=== PATIENT | male | born 1950 | race Caucasian/White ===

== ENCOUNTER 2016-08-13 13:08 | Observation (INO) ==
--- NOTE | 2016-08-13 13:23 | Emergency Department Note ---
Disposition Clinical Impression: Hyperkalemia, CKD (chronic kidney disease) stage 3, GFR 30-59 ml/min Diabetes mellitus Qualifiers: Diabetes mellitus type: type 2 Diabetes mellitus complication status: without complication Disposition: Admitted As Inpatient Referrals: NO,PCP [Primary Care Provider] - Time of Disposition: 15:00 (admit ) Nausea/Vomiting/Diarrhea HPI - General Chief complaint: ED Nausea/Vomiting/Diarrhea Stated complaint: N/V Source: patient, EMS Mode of arrival: EMS Limitations: no limitations Nursing Notes Reviewed: Yes Vital Signs Reviewed: Yes - History of Present Illness HPI Narrative: He presents via EMS complaining of nausea and vomiting. States started late last night. He reports 3-4 episodes of mostly dry heaves. He has had one episode of loose stools. He denies any abdominal pain. Has a history of frequent chest pain but denies any chest pain now. No fever or chills. States he had some nausea and vomiting a week ago that he thinks is due to something he ate. He was given Zofran by EMS and states this has made him feel better. He states he is in hospice care for a heart condition that he states is some type of blockage they cannot fix. No cardiac history recorded in his records here but he does have a history of COPD, diabetes and GERD as well as hypertension. He denies any GI history such as diverticulitis, colitis or hepatitis. He states he is on an antibiotic that he thinks may be for UTI but he does not recall the name and denies any current urinary symptoms.. States this was prescribed by hospice. Has a chronic smoker's cough but denies any other URI symptoms. No other complaints at this time. Glucose by EMS is 343. - Related Data Home Medications Medication Instructions Recorded Confirmed Albuterol Sulfate [Ventolin Hfa] 18 gm IH Q6HR PRN 02/16/16 03/14/16 Atorvastatin [Lipitor] 40 mg PO HS 02/16/16 03/14/16 Carvedilol [Coreg] 6.25 mg PO BID 02/16/16 03/14/16 Citalopram Hydrobromide 40 mg PO DAILY 02/16/16 03/14/16 [Citalopram HBr] Famotidine [Heartburn Prevention] 20 mg PO BID 02/16/16 03/14/16 Insulin LISPRO [HumaLOG] 7 units SQ TIDWM PRN 10/03/16 10/30/16 Isosorbide MONOnitrate (24 HR) 60 mg PO DAILY 02/16/16 03/14/16 [Imdur] Losartan Potassium [Cozaar] 50 mg PO DAILY 02/16/16 03/14/16 Ranolazine [Ranexa] 1,000 mg PO BID 02/16/16 03/14/16 Sitagliptin Phosphate [Januvia] 50 mg PO DAILY 02/16/16 03/14/16 Tamsulosin HCl [Flomax] 0.4 mg PO DAILY 02/16/16 03/14/16 Docusate [Colace] 100 mg PO BID 03/14/16 03/14/16 Mirtazapine [Remeron] 15 mg PO HS 03/14/16 03/14/16 Oxycodone HCl/Acetaminophen 1 tab PO Q6H PRN 03/14/16 03/14/16 [Percocet 7.5-325 mg Tablet] Previous Rx's Medication Instructions Recorded Ascorbic Acid [Vitamin C] 250 mg PO DAILY #30 tablet 03/17/16 Ferrous Sulfate 325 mg PO BIDWM #60 tablet 03/17/16 Folic Acid 1 mg PO DAILY #30 tablet 03/17/16 Gabapentin [Neurontin] 300 mg PO TID #90 capsule 03/17/16 Allergies Allergy/AdvReac Type Severity Reaction Status Date / Time latex Allergy Rash Verified 03/14/16 12:36 lisinopril Allergy Hives Verified 03/14/16 12:36 metformin [From Glucophage] Allergy Rash Verified 03/14/16 12:36 Sulfa (Sulfonamide Allergy Hives Verified 03/14/16 12:36 Antibiotics) Constitutional: Denies: fever, chills, weakness, weight change Eyes: Denies: eye pain, eye discharge, vision change ENT ED: Denies: ear pain, throat pain, dental pain, hearing loss, epistaxis, congestion, dysphagia Cardiovascular: Denies: chest pain, palpitations, dyspnea on exertion, edema, syncope Respiratory: Reports: cough Gastrointestinal: Reports: nausea, vomiting, diarrhea. Denies: abdominal pain, constipation, hematemesis, melena, hematochezia Genitourinary: Denies: urgency, dysuria, frequency, hematuria Musculoskeletal: Denies: back pain, neck pain, arthralgia, myalgia Integumentary: Denies: rash, abrasion, lesions Neurological: Denies: headache, weakness, numbness, paresthesias, confusion, abnormal gait, vertigo Psychiatric: Denies: anxiety, depression, suicidal thoughts, homicidal thoughts , auditory hallucinations, visual hallucinations Endocrine: Denies: fatigue Hematological/Lymphatic: Denies: easy bleeding, easy bruising Allergic/Immunologic: Denies: facial swelling, urticaria Past Medical History - Past Medical History Medical history: Reports: COPD, diabetes, GERD, hypertension, other Surgical history: Reports: other Psychiatric history: Reports: no psych history - Social History Smoking Status: Current every day smoker Smokeless Tobacco Status: No Alcohol use: Reports: none Drug use: Reports: none Physical Exam - General Limitations: no limitations General appearance: alert, in no apparent distress - Head Head exam: atraumatic, normocephalic, normal inspection - Eye Eye exam: Present: normal appearance, PERRL, EOMI - ENT ENT exam: normal exam, normal oropharynx, mucous membranes moist - Neck Neck exam: Present: normal inspection, full ROM, trachea midline - Chest Chest inspection: Present: normal inspection, symmetric chest wall rise - Respiratory Respiratory exam: Present: normal lung sounds bilaterally - Cardiovascular Cardiovascular exam: Present: regular rate, normal rhythm, normal heart sounds - Abdominal Exam Abdominal exam: Present: soft, Non-Tender, normal bowel sounds. Absent: tenderness, distention, guarding, rebound, rigidity - Extremities Exam Extremities exam: Present: normal inspection, full ROM. Absent: tenderness, pedal edema - Back Exam Back exam: Present: normal inspection, full ROM. Absent: tenderness, CVA tenderness (R), CVA tenderness (L) - Neurological Exam Neurological exam: Present: alert, oriented X3 - Psychiatric Psychiatric exam: Present: normal affect, normal mood - Skin Skin exam: Present: warm, dry, intact, normal color Course Course Narrative: Radha presents to the ED with nausea, vomiting and one episode of loose stools. No other systemic symptoms, cardiac or respiratory symptoms. It is unclear why he is currently on antibiotic. Will check with his pharmacy to find out the name. He is hyperglycemic at this time and will be given some fluids. Will check routine labs for any other GI condition or diabetic complication. Current symptoms may be due to a viral gastroenteritis and/or antibiotic side effect. - Reevaluation(s) Reevaluation #1: Labs show no leukocytosis or elevated LFTs. No additional laboratory findings to indicate DKA. He is hyperkalemic however at .4 with no hemolysis in sampling. There were no peaked T waves on 12-lead. Will treat for hyperkalemia and continue IV fluids. Urinalysis shows hematuria but no evidence of UTI. Time: 14:52 Reevaluation #2: Discussed with patient need for overnight admission for continued monitoring and potential additional treatment of his hyperkalemia. Patient is agreeable. I spoke to the hospitalist front man, Dr. Lowery, who has accepted the patient. Clarified with the patient that although he does state he is under hospice care he is a full code. Will continue IV fluids. Patient currently has no complaints. Vital Signs Temperature 98 F 08/13/16 13:10 Pulse Rate 74 08/13/16 13:10 Respiratory Rate 18 08/13/16 13:10 Blood Pressure 186/101 08/13/16 13:10 O2 Sat by Pulse Oximetry 95 08/13/16 13:10 Temperature 98 F 08/13/16 13:10 Pulse Rate 73 08/13/16 15:52 Respiratory Rate 16 08/13/16 15:52 Blood Pressure 157/81 08/13/16 15:52 O2 Sat by Pulse Oximetry 97 08/13/16 15:52 Oxygen Delivery Oxygen Delivery Room Air Nausea/Vomiting/Diarrhea - Differential Diagnosis Likely: gastroenteritis, clostridium difficile infection, drug-induced nausea and vomitting, dehydration. Unlikely: surgical process, bowel obstruction, ischemic bowel - Medical Records Medical records reviewed: Yes I reviewed the patient's medical records. - Lab Data Lab results reviewed: Yes I reviewed the patient's lab results. Result diagrams: 08/13/16 14:05 08/13/16 14:05 Lab Results 08/13/16 08/13/16 08/13/16 Range/Units 14:05 14:05 14:05 WBC 7.7 (4.3-11.1) K/mcL RBC 3.53 L (4.19-5.50) M/mcL Hgb 10.6 L (12.9-16.9) g/dL Hct 31.2 L (37.5-50.1) % MCV 88.4 (83.0-100.0) fL MCH 30.0 (28.0-33.3) pg MCHC 34.0 (31.6-35.5) g/dL RDW 12.6 (11.5-14.5) % Plt Count 194 (140-400) K/mcL MPV 10.1 (9.4-12.4) fL Immature Gran % 0.8 (0-4) % Seg Neutrophils % 80.2 % Lymphocytes % 11.2 % Monocytes % 5.7 % Eosinophils % 1.7 % Basophils % 0.4 % Neutrophils # 6.2 (1.6-8.9) K/mcL Lymphocytes # 0.9 (0.6-4.6) K/mcL Monocytes # 0.4 (0.0-1.3) K/mcL Eosinophils # 0.1 (0.0-0.6) K/mcL Basophils # 0.0 (0.0-0.2) K/mcL VBG pH (7.32-7.42) pH Units VBG pCO2 (41-51) mmHg VBG pO2 (25-40) mmHg VBG HCO3 (21-27) mEq/L Sodium 137 (136-145) mEq/L Potassium 5.4 H (3.5-4.5) mEq/L Chloride 104 (98-109) mEq/L Carbon Dioxide 27 (19-29) mEq/L BUN 30 H (8-26) mg/dL Creatinine 1.88 H (0.72-1.25) mg/dL Est GFR ( Amer) 44 L (> 60) Est GFR (Non-Af Amer) 36 L (> 60) BUN/Creatinine Ratio 16 (6-26) Glucose 348 H (70-99) mg/dL Calculated Osmolality 304 H (280-300) Calcium 9.2 (8.6-10.8) mg/dL Total Bilirubin 0.5 (0.2-1.2) mg/dL AST 12 (5-34) Units/L ALT 10 (0-55) Units/L Alkaline Phosphatase 111 (38-126) Units/L Troponin I (0-0.03) ng/mL Serum Total Protein 5.7 L (6.0-8.3) g/dL Albumin 3.1 L (3.5-5.0) g/dL Globulin 2.6 (2.4-3.5) g/dL Albumin/Globulin Ratio 1.2 (1.1-2.2) Lipase 22 (8-78) Units/L Beta-Hydroxybutyric Acd 0.26 (0.02-0.27) mmol/L Urine Color (Yellow) Urine Clarity (Clear) Urine pH (5.0-8.0) pH Units Ur Specific [place] (1.010-1.025) Urine Protein (Neg-Trace) mg/dL Urine Glucose (UA) (Normal) mg/dL Urine Ketones (Negative) mg/dL Urine Blood (Negative) Urine Nitrite (Negative) Urine Bilirubin (Negative) Urine Urobilinogen (Normal) mg/dL Ur Leukocyte Esterase (Negative) Urine Microscopic RBC (0-3) per hpf Urine Microscopic WBC Ur Squamous Epith Cells (None-Few) per lpf Ur Culture Indicated? (NO) 08/13/16 08/13/16 08/13/16 Range/Units 14:05 14:05 14:07 WBC (4.3-11.1) K/mcL RBC (4.19-5.50) M/mcL Hgb (12.9-16.9) g/dL Hct (37.5-50.1) % MCV (83.0-100.0) fL MCH (28.0-33.3) pg MCHC (31.6-35.5) g/dL RDW (11.5-14.5) % Plt Count (140-400) K/mcL MPV (9.4-12.4) fL Immature Gran % (0-4) % Seg Neutrophils % % Lymphocytes % % Monocytes % % Eosinophils % % Basophils % % Neutrophils # (1.6-8.9) K/mcL Lymphocytes # (0.6-4.6) K/mcL Monocytes # (0.0-1.3) K/mcL Eosinophils # (0.0-0.6) K/mcL Basophils # (0.0-0.2) K/mcL VBG pH 7.40 (7.32-7.42) pH Units VBG pCO2 43.6 (41-51) mmHg VBG pO2 25.8 (25-40) mmHg VBG HCO3 27.2 H (21-27) mEq/L Sodium (136-145) mEq/L Potassium (3.5-4.5) mEq/L Chloride (98-109) mEq/L Carbon Dioxide (19-29) mEq/L BUN (8-26) mg/dL Creatinine (0.72-1.25) mg/dL Est GFR ( Amer) (> 60) Est GFR (Non-Af Amer) (> 60) BUN/Creatinine Ratio (6-26) Glucose (70-99) mg/dL Calculated Osmolality (280-300) Calcium (8.6-10.8) mg/dL Total Bilirubin (0.2-1.2) mg/dL AST (5-34) Units/L ALT (0-55) Units/L Alkaline Phosphatase (38-126) Units/L Troponin I 0.01 (0-0.03) ng/mL Serum Total Protein (6.0-8.3) g/dL Albumin (3.5-5.0) g/dL Globulin (2.4-3.5) g/dL Albumin/Globulin Ratio (1.1-2.2) Lipase (8-78) Units/L Beta-Hydroxybutyric Acd (0.02-0.27) mmol/L Urine Color Yellow (Yellow) Urine Clarity Clear (Clear) Urine pH 7.0 (5.0-8.0) pH Units Ur Specific [place] 1.025 (1.010-1.025) Urine Protein >=300 H (Neg-Trace) mg/dL Urine Glucose (UA) >=1000 H (Normal) mg/dL Urine Ketones Negative (Negative) mg/dL Urine Blood Moderate H (Negative) Urine Nitrite Negative (Negative) Urine Bilirubin Negative (Negative) Urine Urobilinogen Normal (Normal) mg/dL Ur Leukocyte Esterase Negative (Negative) Urine Microscopic RBC 30-50 H (0-3) per hpf Urine Microscopic WBC Test Not Performed Ur Squamous Epith Cells Few (None-Few) per lpf Ur Culture Indicated? NO (NO) - EKG Data EKG attestation: Yes I reviewed and interpreted this EKG. EKG results narrative: Supraventricular rhythm at 76 bpm with no clear T waves but significant baseline artifact Rate: normal [place]/QRS: left axis deviation
[2016-08-13] MEDS ORDERED: 0.9 % Sodium Chloride 500 ML IVC ONE (13:36)
[2016-08-13 14:17] LABS: Bilirubin,Urine Negative (Negative); Blood,Urine Moderate (Negative); Clarity,Urine Clear (Clear); Color,Urine Yellow (Yellow); Glucose,Urine (UA) >=1000 mg/dL (Normal); Ketones,Urine Negative (Negative); Leukocyte Esterase,Urine Negative (Negative); Nitrite,Urine Negative (Negative); Protein,Urine >=300 mg/dL (Neg-Trace); Specific Gravity,Urine 1.025 (1.010-1.025); Urobilinogen,Urine Normal (Normal)
[2016-08-13 14:27] LABS: VBG HCO3 27.2 mEq/L (21-27); VBG PCO2 43.6 mmHg (41-51); VBG PH 7.4 pH Units (7.32-7.42); VBG PO2 25.8 mmHg (25-40)
[2016-08-13 14:28] LABS: Albumin 3.1 g/dL (3.5-5.0); Albumin/Globulin Ratio 1.2 (1.1-2.2); Bilirubin,Total 0.5 mg/dL (0.2-1.2); Calcium 9.2 mg/dL (8.6-10.8); Globulin 2.6 g/dL (2.4-3.5); Potassium 5.4 mEq/L (3.5-4.5); Total Protein 5.7 g/dL (6.0-8.3)
[2016-08-13 14:31] LABS: Basophils % 0.4 %; Eosinophils # 0.1 K/mcL (0.0-0.6); Eosinophils % 1.7 %; Hematocrit 31.2 % (37.5-50.1); Hemoglobin 10.6 g/dL (12.9-16.9); Immature Granulocytes % 0.8 % (0-4); Lymphocytes # 0.9 K/mcL (0.6-4.6); Lymphocytes % 11.2 %; Mean Corpuscular Volume 88.4 fL (83.0-100.0); Mean Platelet Volume 10.1 fL (9.4-12.4); Monocytes # 0.4 K/mcL (0.0-1.3); Monocytes % 5.7 %; Neutrophils # 6.2 K/mcL (1.6-8.9); Platelet Count 194 K/mcL (140-400); Red Blood Count 3.53 M/mcL (4.19-5.50); Red Cell Distribution Width 12.6 % (11.5-14.5); Segmented Neutrophils % 80.2 %
[2016-08-13 14:39] LABS: RBC,Urine 30-50 per hpf (0-3); Squamous Epithelial Cell,Urine Few per lpf (None-Few)
[2016-08-13] MEDS ORDERED: Insulin Human Regular 10 UNIT in 0.9 % Sodium Chloride 10 ML IV ONE (14:51)
[2016-08-13] MEDS ORDERED: Calcium Gluconate 1,000 MG/10 ML VIAL IV ONE (14:51)
[2016-08-13] MEDS ORDERED: Naloxone 0.4 MG/ML INJ IVP PRN ×2 (16:13→17:35)
[2016-08-13] MEDS ORDERED: Ondansetron ODT 4 MG TAB.RAPDIS SL PRN ×2 (17:01→17:35)
--- NOTE | 2016-08-13 17:04 | Internal Med History&Physical ---
Date of Encounter: 08/13/16 Time of Encounter: 17:00 Assessment and Plan (1) CKD (chronic kidney disease) stage 3, GFR 30-59 ml/min Current visit: Yes Status: Chronic He should have has chronic kidney disease due to his long-term diabetes (2) Diabetes mellitus Current visit: Yes Status: Chronic Long-term diabetic care. Qualifiers: Diabetes mellitus type: type 2 Diabetes mellitus complication status: with kidney complications Diabetes mellitus terminal gauger insulin use: with group home use Chronic kidney disease stage: stage 3 (moderate) Qualified Code(s): E11.22 - Type 2 diabetes mellitus with diabetic chronic kidney disease; N18.3 - Chronic kidney disease, stage 3 (moderate); Z79.4 - residential (current) use of insulin (3) Hyperkalemia Current visit: No Status: Acute Hyperkalemia is unusual with nausea and vomiting. This could be gastroparesis but will follow everything in general and observe the patient (4) Nausea with vomiting, unspecified Current visit: Yes Status: Acute No nausea and vomiting at this moment. The Zofran seems to help Qualifiers: Vomiting type: unspecified Vomiting Intractability: non-intractable Qualified Code(s): R11.2 - Nausea with vomiting, unspecified (5) Nausea vomiting and diarrhea Current visit: Yes Status: Acute As above no nausea and vomiting at this time he had one episode of loose stools earlier. Internal Medicine - H&P: HPI Chief complaint: Patient presented presented to the emergency room nausea and vomiting. He Admitted From: Emergency Dept Plans for Post Hospital Care: Home History of present illness: Mr. Rogel is a 66 year old male It was noted that he had 5.4 potassium so this was treated emergency room doctor preferred to have in observation overnight. Past Med Surg Social Fam HX - Past Medical History Medical history: COPD, coronary artery disease, diabetes, GERD, hypertension, other Psychiatric history: no psych history - Past Surgical History Surgical History: other - Social History Smoking Status: Current every day smoker Smokeless Tobacco Status: No Alcohol use: none Drug use: none Internal Medicine - H&P: Meds Albuterol Sulfate [Ventolin Hfa] 18 gm IH Q6HR PRN 02/16/16 [History] Atorvastatin [Lipitor] 40 mg PO HS 02/16/16 [History] Carvedilol [Coreg] 6.25 mg PO BID 02/16/16 [History] Citalopram Hydrobromide [Citalopram HBr] 40 mg PO DAILY 02/16/16 [History] Famotidine [Heartburn Prevention] 20 mg PO BID 02/16/16 [History] Insulin LISPRO [HumaLOG] 7 units SQ TIDWM PRN 02/16/16 [History] Isosorbide MONOnitrate (24 HR) [Imdur] 60 mg PO DAILY 02/16/16 [History] Losartan Potassium [Cozaar] 50 mg PO DAILY 02/16/16 [History] Ranolazine [Ranexa] 1,000 mg PO BID 02/16/16 [History] Sitagliptin Phosphate [Januvia] 50 mg PO DAILY 02/16/16 [History] Tamsulosin HCl [Flomax] 0.4 mg PO DAILY 02/16/16 [History] Docusate [Colace] 100 mg PO BID 03/14/16 [History] Oxycodone HCl/Acetaminophen [Percocet 7.5-325 mg Tablet] 1 tab PO Q6H PRN [History] Ascorbic Acid [Vitamin C] 250 mg PO DAILY #30 tablet 03/17/16 [Rx] Ferrous Sulfate 325 mg PO BIDWM #60 tablet 03/17/16 [Rx] Folic Acid 1 mg PO DAILY #30 tablet 03/17/16 [Rx] Gabapentin [Neurontin] 300 mg PO TID #90 capsule 03/17/16 [Rx] Bisacodyl [Dulcolax] 10 mg RC DAILY PRN 08/13/16 [History] Omeprazole [PriLOSEC] 20 mg PO DAILY 08/13/16 [History] Allergies latex Allergy (Verified 03/14/16 12:36) Rash lisinopril Allergy (Verified 03/14/16 12:36) Hives metformin [From Glucophage] Allergy (Verified 03/14/16 12:36) Rash Sulfa (Sulfonamide Antibiotics) Allergy (Verified 03/14/16 12:36) Hives All Systems PM: A 10-system review of systems was performed and is negative for pertinent findings except as documented above in the HPI. - Constitutional Vitals: Temp Pulse Resp BP Pulse Ox 98 F 73 16 157/81 97 08/13/16 13:10 08/13/16 15:52 08/13/16 15:52 08/13/16 15:52 08/13/16 15:52 - Head Head exam: Present: atraumatic, normal inspection, normocephalic - Neck Neck exam general surgery: Present: supple, trachea midline. Absent: lymphadenopathy - Respiratory Respiratory exam: Present: CTAB. Absent: accessory muscle use, rales, rhonchi, wheezes - Cardiovascular Cardiovascular exam: Present: RRR, +S1, +S2. Absent: diastolic murmur, gallop, rubs, systolic murmur - GI/Abdominal GI/Abdominal exam: Present: normal bowel sounds, soft, no peritoneal signs. Absent: distended, tenderness Internal Med - H&P Results - Labs CBC & Chem 7: 08/13/16 14:05 08/13/16 14:05 Labs: There are obvious chronic changes. Patient has some chronic renal failure due to his long-term diabetes etc. And the potassium was elevated 5.4 - VTE Reasons for not Prescribing Prophylaxis: Treatment not Indicated - Low risk for VTE
[2016-08-13] MEDS ORDERED: *HR* OxyCODONE/APAP 7.5/325 TABLET PO PRN (17:35)
[2016-08-13] MEDS ORDERED: D5% in Water 1,000 ML IVC PRN (18:10)
[2016-08-13] MEDS ORDERED: Dextrose Gel 15 GM PO PRN ×2 (18:10)
[2016-08-13] MEDS ORDERED: *HR* Dextrose 50 % in Water (Syg) 50 ML SYRINGE IVP PRN (18:10)
[2016-08-13] MEDS: Insulin LISPRO 300 UNITS/3 ML VIAL SQ SCH (18:36)
[2016-08-13] MEDS ORDERED: 0.9 % Sodium Chloride 1,000 ML ONE (20:01)
[2016-08-13] MEDS: Ranolazine 500 MG TAB.ER.12H PO SCH (20:24)
[2016-08-13] MEDS: Gabapentin 100 MG CAPSULE PO SCH (20:25)
[2016-08-13] MEDS: Famotidine 20 MG TABLET PO SCH (20:26)
[2016-08-13] MEDS ORDERED: Mirtazapine 15 MG TABLET PO SCH (21:00)
[2016-08-14 05:40] LABS: Calcium 8.6 mg/dL (8.6-10.8); Potassium 4.4 mEq/L (3.5-4.5)
[2016-08-14] MEDS ORDERED: Isosorbide MONOnitrate (24 HR) 60 MG TAB.ER.24H PO SCH (09:00)
[2016-08-14] MEDS ORDERED: Folic Acid 1 MG TABLET PO SCH (09:00)
[2016-08-14] MEDS ORDERED: *HR* SitaGLIPtin 25 MG TABLET PO SCH (09:00)
[2016-08-14] MEDS ORDERED: Ascorbic Acid 500 MG TABLET PO SCH (09:00)
[2016-08-14] MEDS: Famotidine 20 MG TABLET PO SCH (09:25)
[2016-08-14] MEDS: Ranolazine 500 MG TAB.ER.12H PO SCH (09:25)
[2016-08-14] MEDS: Gabapentin 100 MG CAPSULE PO SCH (09:26)
[2016-08-14] MEDS: Insulin LISPRO 300 UNITS/3 ML VIAL SQ SCH ×2 (09:27→12:49)
--- NOTE | 2016-08-14 12:33 | Discharge Summary ---
Date of Encounter: 08/14/16 Time of Encounter: 12:00 - Discharge Diagnosis (1) CKD (chronic kidney disease) stage 3, GFR 30-59 ml/min Priority: Secondary Status: Chronic Comments: This could contribute to his hyperkalemia but otherwise no acute change (2) Diabetes mellitus Priority: Secondary Status: Chronic Comments: And this probably the cause of his chronic kidney disease Qualifiers: Diabetes mellitus type: type 2 Diabetes mellitus complication status: with kidney complications Diabetes mellitus assisted insulin use: with superintendent terminal use Chronic kidney disease stage: stage 3 (moderate) Qualified Code(s): E11.22 - Type 2 diabetes mellitus with diabetic chronic kidney disease; N18.3 - Chronic kidney disease, stage 3 (moderate); Z79.4 - USP (current) use of insulin (3) Hyperkalemia Priority: Primary Status: Acute Comments: Cause of admission. It is now normalized. (4) Nausea with vomiting, unspecified Priority: Secondary Status: Resolved Comments: As vomiting is resolved Qualifiers: Vomiting type: unspecified Vomiting Intractability: non-intractable Qualified Code(s): R11.2 - Nausea with vomiting, unspecified (5) Nausea vomiting and diarrhea Priority: Primary Status: Acute - Discharge Medications Home Medications: Albuterol Sulfate [Ventolin Hfa] 18 gm IH Q6HR PRN 02/16/16 [History] Atorvastatin [Lipitor] 40 mg PO HS 02/16/16 [History] Carvedilol [Coreg] 6.25 mg PO BID 02/16/16 [History] Citalopram Hydrobromide [Citalopram HBr] 40 mg PO DAILY 02/16/16 [History] Famotidine [Heartburn Prevention] 20 mg PO BID 02/16/16 [History] Insulin LISPRO [HumaLOG] 7 units SQ TIDWM PRN 02/16/16 [History] Isosorbide MONOnitrate (24 HR) [Imdur] 60 mg PO DAILY 02/16/16 [History] Losartan Potassium [Cozaar] 50 mg PO DAILY 02/16/16 [History] Ranolazine [Ranexa] 1,000 mg PO BID 02/16/16 [History] Sitagliptin Phosphate [Januvia] 50 mg PO DAILY 02/16/16 [History] Tamsulosin HCl [Flomax] 0.4 mg PO DAILY 02/16/16 [History] Docusate [Colace] 100 mg PO BID 03/14/16 [History] Oxycodone HCl/Acetaminophen [Percocet 7.5-325 mg Tablet] 1 tab PO Q6H PRN [History] Ascorbic Acid [Vitamin C] 250 mg PO DAILY #30 tablet 03/17/16 [Rx] Ferrous Sulfate 325 mg PO BIDWM #60 tablet 03/17/16 [Rx] Folic Acid 1 mg PO DAILY #30 tablet 03/17/16 [Rx] Gabapentin [Neurontin] 300 mg PO TID #90 capsule 03/17/16 [Rx] Bisacodyl [Dulcolax] 10 mg RC DAILY PRN 08/13/16 [History] Omeprazole [PriLOSEC] 20 mg PO DAILY 08/13/16 [History] Allergies/Adverse Reactions: Allergies latex Allergy (Verified 03/14/16 12:36) Rash lisinopril Allergy (Verified 03/14/16 12:36) Hives metformin [From Glucophage] Allergy (Verified 03/14/16 12:36) Rash Sulfa (Sulfonamide Antibiotics) Allergy (Verified 03/14/16 12:36) Hives Date of admission: 08/13/16 16:31 Primary care physician: PCP NO Consults: 08/13/16 18:45 Consult to Nutrition [CONS] Routine Comment: Consulting Provider: NUTRITION Reason for Dietary Consult: PO Supplementation Discharging clinician: Rell Lowery Anticipated date of discharge: 08/14/16 - Patient Status Disposition: Home, Self-Care Condition: Good Functional capacity at discharge: independent ambulation Overall status at discharge: patient is back to baseline - Discharge Instructions Forms: ED Satisfaction Letter - Diet and Activity Activity: increase activity as tolerated Diet: diabetic diet Interval History: She was sent to emergency room for nausea and vomiting. This really did resolve with Zofran dose by the squad. He was admitted for hyperkalemia. Hospital course: Mr. Rogel is a 66 year old male Patient is done well had no complications the evening of admission he had corrected below 5 and currently within normal limits - Time Spent with Patient Total time spent providing and/or coordinating discharge services: Less than 30 minutes - Constitutional Vitals: Temp Pulse Resp BP Pulse Ox 97.5 F L 92 18 151/82 98 08/14/16 11:41 08/14/16 11:41 08/14/16 11:41 08/14/16 11:41 08/14/16 11:41 - Head Head exam: Present: atraumatic, normal inspection, normocephalic - Neck Neck exam general surgery: Present: supple, trachea midline. Absent: lymphadenopathy - Respiratory Respiratory exam: Present: CTAB. Absent: accessory muscle use, rales, rhonchi, wheezes - Cardiovascular Cardiovascular exam: Present: RRR, +S1, +S2. Absent: diastolic murmur, gallop, rubs, systolic murmur - GI/Abdominal GI/Abdominal exam: Present: normal bowel sounds, soft, no peritoneal signs. Absent: distended, tenderness - VTE Reasons for not Prescribing Prophylaxis: Treatment not Indicated - Low risk for VTE Documentation of Mechanical Device: Graduated compression elastic hosiery
[2016-08-14 15:47] VITALS: BP 172/91
--- NOTE | 2016-08-17 17:14 | Electrocardiograph Report ---
[place] [id number] Test Date: 2016-08-13 Pat Name: Benjamin Rogel Department: 2000 Room: 119 Gender: M Arc Cutter Plasma Arc: : 1950 Requested By: Rell Lowery Order Number: [id number] Carmela MD: Trang Zuniga Measurements Intervals [place] Rate: 76 P: CA: 0 QRS: -32 QRSD: 105 T: 6 QT: 386 QTc: 417 Interpretive Statements SINUS RHYTHM MARKED LEFT AXIS DEVIATION PATTERN CONSISTENT WITH PULMONARY DISEASE Electronically Signed On 08-17-2016 17:13:24 EDT by Trang Zuniga
== END 2016-08-14 16:41 | disposition home or self-care (01) ==
LOC: INPGRE 13:08 → EMEROOGRE 13:08 → INPGRE 17:19
PROVIDERS: ADMIT Internal Medicine; ATTEND Internal Medicine